=== PATIENT | female | born 2000 | race Caucasian/White ===

== ENCOUNTER → 2023-12-12 | Emergency (ER) | payer OTHER ==
[~2023-12-12] VITALS: Ht 142.2 cm; Wt 59.0 kg
[2023-12-12 18:24] VITALS: BP 116/60; TEMP 98.1; O2SAT 97
== END | disposition home or self-care (01) ==
LOC: ER 17:24
DX: R06.4 Hyperventilation (principal); J45.909 Unspecified asthma, uncomplicated